=== PATIENT | female | born 1965 | race Two or more races ===

== ENCOUNTER 2025-02-09 09:13 | Inpatient (IN) | payer OTHER, MEDICAID ==
[~2025-02-09] VITALS: Ht 147.3 cm; Wt 67.2 kg
--- NOTE | 2025-02-09 09:38 | ED.PDOC ---
History of Present Illness HPI Comments 60-year-old female with a history of chronic back pain, diabetes, hypertension, and kidney stones, was brought in by daughter for the chief complaint of generalized weakness, with the associated dizziness, and disoriented. Daughter states the patient was acting abnormal from baseline, and upon checking at home blood pressure patient noted that it read low prompting the visit with the emergency department. Patient's EKG was noted to be 86 NSR, without any abnormalities, or acute findings. Patient denies any nausea, vomiting, diarrhea, abdominal pain, chest pain, shortness a breath, tachypnea, or any other associated symptoms, modifiers at this time. Chief Complaint: General Weakness Time Seen by MD: 09:34 Reviewed Notes: Nurses Notes, Medications, Allergies Allergies: Coded Allergies: Codeine (Verified Allergy, Unknown, 02/09/25) Information Source: Patient Mode of Arrival: Ambulatory Severity: Moderate Timing: Hours Duration: Since onset, Hours Prehospital treatment: None Past Medical History PAST MEDICAL HISTORY: DM, HTN, Kidney Stones Surgical History: Unknown Family History Family History: Reviewed,noncontributory to illness Social History Smoker: Non-Smoker Alcohol: Denies ETOH Use Drugs: Denies Drug Use Lives In: Home Constitutional: reports: fatigue, weakness; denies: chills, diaphoresis, fever, malaise, sweats, others EENTM: denies: blurred vision, double vision, ear bleeding, ear discharge, ear drainage, ear pain, ear ringing, eye pain, eye redness, hearing loss, mouth pain, mouth swelling, nasal discharge, nose bleeding, nose congestion, nose pain, photophobia, tearing, throat pain, throat swelling, voice changes, others Respiratory: denies: cough, hemoptysis, orthopnea, SOB at rest, shortness of breath, SOB with excertion, stridor, wheezing, others Cardiovascular: denies: chest pain, dizzy spells, diaphoresis, Dyspnea on exertion, edema, irregular heart beat, left arm pain, lightheadedness, palpitations, PND, syncope, others Gastrointestinal: denies: abdomen distended, abdominal pain, blood streaked bowels, constipated, diarrhea, dysphagia, difficulty swallowing, hematemesis, melena, nausea, poor appetite, poor fluid intake, rectal bleeding, rectal pain, vomiting, others Genitourinary: denies: abnormal vagina bleeding, burning, dyspareunia, dysuria, flank pain, frequency, hematuria, incontinence, pain, , vagina discharge, urgency, others Neurological: denies: dizziness, fainting, headache, left sided numbness, left sided weakness, numbness, paresthesia, pre-existing deficit, right sided numbness, right sided weakness, seizure, speech problems, tingling, tremors, weakness, others Musculoskeletal: denies: back pain, gout, joint pain, joint swelling, muscle pain, muscle stiffness, neck pain, others Integumetry: denies: bruises, change in color, change in hair/nails, dryness, laceration, lesions, lumps, rash, wounds, others Allergic/Immunocompromised: denies: Difficulty Healing, Frequent Infections, Hives, Itching, others Hematologic/Lymphatic: denies: anemia, blood clots, easy bleeding, easy bruising, swollen glands, others Endocrine: denies: excessive hunger, excessive sweating, excessive thirst, excessive urination, flushing, intolerance to cold, intolerance to heat, unexplained weight gain, unexplained weight loss, others Psychiatric: denies: anxiety, bipolar disorder, depression, hopeless, panic disorder, schizophrenia, sleepless, suicidal, others All Other Systems: Reviewed and Negative Physical Exam General Appearance: Moderate Distress, Normal HEENT: Normal ENT Inspection, Pharynx Normal, TMs Normal Neck: Full Range of Motion, Non-Tender, Normal, Normal Inspection Respiratory: Chest Non-Tender, Lungs Clear, No Accessory Muscle Use, No Respiratory Distress, Normal Breath Sounds Cardiovascular: No Edema, No JVD, No Murmur, No Gallop, Normal Peripheral Pulses, Regular Rate/Rhythm Breast Exam: Deferred Gastrointestinal: No Organomegaly, Non Tender, No Pulsatile Mass, Normal Bowel Sounds, Soft Genitalia: Deferred Pelvic: Deferred Rectal: Deferred Extremities: No calf tenderness, Normal capillary refill, Normal inspection, Normal range of motion, Non-tender, No pedal edema Musculoskeletal : Apperance: Normal Neurologic: Alert, 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 Was a procedure done?: No EKG EKG : Pulse Rate (adult): 86 [place]: Normal Cardiac Rhythm: NSR Block: None Hypertrophy: None ST: Normal Differential Dx Considerations may include: Hypoglycemia, vertigo, hypotension, X-Ray, Labs, Meds, VS Vital Signs Date Time Temp Pulse Resp B/P (MAP) Pulse Ox O2 Delivery O2 Flow Rate FiO2 02/09/25 09:38 86 02/09/25 09:24 86 02/09/25 09:15 97.9 84 18 113/67 96 97.9 Lab Test 02/09/25 10:08 02/09/25 09:25 Range/Units White Blood Count 7.1 4.4-10.8 10^3/uL Red Blood Count 4.70 4.0-5.20 10^6/uL Hemoglobin 11.7 L 12.2-16.2 g/dL Hematocrit 35.9 L 36.0-46.0 % Mean Corpuscular Volume 76.4 L 80.0-100.0 fL Mean Corpuscular Hemoglobin 24.8 L 28.0-32.0 pg Mean Corpuscular Hemoglobin Concent 32.5 32.0-36.0 g/dL Red Cell Distribution Width 16.1 H 11.8-14.3 % Platelet Count 291 140-450 10^3/uL Mean Platelet Volume 8.3 6.9-10.8 fL Neutrophils (%) (Auto) 49.8 37.0-80.0 % Lymphocytes (%) (Auto) 35.0 10.0-50.0 % Monocytes (%) (Auto) 10.4 0.0-12.0 % Eosinophils (%) (Auto) 4.1 0.0-7.0 % Basophils (%) (Auto) 0.7 0.0-2.0 % Neutrophils # (Auto) 3.5 1.6-8.6 10 ^3/uL Lymphocytes # (Auto) 2.5 0.4-5.4 10 ^3/uL Monocytes # (Auto) 0.7 0-1.3 10 ^3/uL Eosinophils # (Auto) 0.3 0-0.8 10 ^3/uL Basophils # (Auto) 0 0-0.2 10 ^3/uL Nucleated Red Blood Cells 0.1 % Sodium Level 141 136-145 mmol/L Potassium Level 3.6 3.5-5.1 mmol/L Chloride Level 102 98-107 mmol/L Carbon Dioxide Level 29 20-31 mmol/L Anion Gap 10 5-15 Blood Urea Nitrogen 8 L 9-23 mg/dL Creatinine 0.82 0.550-1.02 mg/dL Glomerular Filtration Rate Calc 82 >90 mL/min BUN/Creatinine Ratio 9.8 L 10.0-20.0 Serum Glucose 124 H 74-106 mg/dL Calcium Level 9.6 8.7-10.4 mg/dL Troponin I High Sensitivity < 3 L </=34 ng/L POC Glucose 170 H 70-106 mg/dl Patient alert. Blood sugar elevated. Complaining of dizziness. Vitals stable. Possible autonomic disorder. Establish intravenous access. Was given fluids. Explained to the family. Continue monitoring. PATIENT: LEXI LAWS ACCT: [id number] UNIT: [id number] : 1965 LOC: ER ROOM / BED: / AGE / SEX: 60 / F ADM STATUS: REG ER SERVICE 1007 ORDERING PHYSICIAN: CHANELLE GELLER MD PROCEDURE(s): HWOCT - HEAD WITHOUT CONTRAST REASON: tia ORDER NUMBER(s): [id number], ACCESSION NUMBER(s): [id number] EXAM: CT HEAD WITHOUT CONTRAST HISTORY: tia, hypertension, dizziness COMPARISON: None TECHNIQUE: Noncontrast axial CT images of the head were performed. Sagittal and coronal reformatted images were obtained. This CT exam was performed using 1 or more of the following dose reduction techniques: Automated exposure control, adjustment of the mA and/or kv according to patient size, or the use of iterative reconstruction techniques. Radiation Dose: CTDI volume is 52.71 mGy. Dose-length product is 863.9 mGy*cm FINDINGS: No intracranial hemorrhage, mass, midline shift, hydrocephalus, or evidence of acute large vessel infarct. There is a small cavum septum pellucidum. The partially-visualized paranasal sinuses are clear. The bilateral mastoid air cells and middle ear spaces are clear. No cranial fracture or scalp edema. IMPRESSION: No acute intracranial process. Time of 1ST Reevaluation: 10:04 Reevaluation 1ST: Unchanged Patient Education/Counseling: Diagnosis, Treatment, Need For Follow Up Family Education/Counseling: No Family Present SEPSIS Sepsis Screen Date sepsis recognized/suspect: Feb 09, 2025 Time Sepsis recognized/suspect: 917 Recent Procedure: No On Antibiotic Therapy: No Respiratory Rate >20: No Heart Rate >90: No Temp<36 C (96.8 F) or >38.3 C: No SBP <90 or MAP <65 mmHG: No New Acute Mental Status Change: No Is the patient on CPAP, BIPAP,: No Physician Orders Electrocardigram (02/09/25 09:32) Urinalysis (02/09/25 10:00) Head Without Contrast (02/09/25 10:07) Vital Signs Date Time Temp Pulse Resp B/P (MAP) Pulse Ox O2 Delivery O2 Flow Rate FiO2 02/09/25 09:38 86 02/09/25 09:24 86 02/09/25 09:15 97.9 84 18 113/67 96 97.9 Laboratory Tests Test 02/09/25 10:08 White Blood Count 7.1 10^3/uL (4.4-10.8) Departure 1 Departure Time of Disposition: 10:06 Impression: Primary Impression: Uncontrolled diabetes mellitus Qualified Codes: E13.65 - Other specified diabetes mellitus with hyperglycemia Additional Impression: Autonomic disorder Disposition: ADMITTED INPATIENT Admit to: Med Surg Condition: Guarded Critical Care Note Critical Care Time?: No Stability Stability form required: No Heart Score Heart Score: Heart Score Response (Comments) Value History Slightly Suspicious 0 EKG Normal 0 Age 45-64 1 Risk Factors >3 or Hx ASHD 2 Troponin Normal limit 0 Total 3 I personally scribed for CHANELLE GELLER MD ([email or web address]) on 02/09/25 at 09:38. Electronically submitted by Naresh Finch ([email or web address]). I personally scribed for CHANELLE GELLER MD ([email or web address]) on 02/09/25 at 11:46. Electronically submitted by Naresh Finch ([email or web address]). CHANELLE GELLER MD Feb 09, 2025 09:38
[2025-02-09 10:42] LABS: Hematocrit 35.9 % (36.0-46.0); Hemoglobin 11.7 g/dL (12.2-16.2); Mean Corpuscular Hemoglobin 24.8 pg (28.0-32.0); Mean Corpuscular Volume 76.4 fL (80.0-100.0); Nucleated Red Blood Cells % 0.1 %
[2025-02-09 10:47] LABS: Chloride 102 mmol/L (98-107); Potassium 3.6 mmol/L (3.5-5.1); Sodium 141 mmol/L (136-145)
[2025-02-09 10:48] LABS: Anion Gap 10 (5-15); Calcium 9.6 mg/dL (8.7-10.4); Carbon Dioxide 29 mmol/L (20-31)
[2025-02-09 10:53] LABS: BUN/Creatinine Ratio 9.8 (10.0-20.0)
[2025-02-09 11:03] LABS: Blood Urea Nitrogen 8 mg/dL (9-23); Glucose 124 mg/dL (74-106)
--- NOTE | 2025-02-09 11:03 | DVH ---
EXAM: CT HEAD WITHOUT CONTRAST HISTORY: tia, hypertension, dizziness COMPARISON: None TECHNIQUE: Noncontrast axial CT images of the head were performed. Sagittal and coronal reformatted i mages were obtained. This CT exam was performed using 1 or more of the following dose reduction techn iques: Automated exposure control, adjustment of the mA and/or kv according to patient size, or the u se of iterative reconstruction techniques. Radiation Dose: CTDI volume is 52.71 mGy. Dose-length product is 863.9 mGy*cm FINDINGS: No intracranial hemorrhage, mass, midline shift, hydrocephalus, or evidence of acute large vessel inf arct. There is a small cavum septum pellucidum. The partially-visualized paranasal sinuses are clear. The bilateral mastoid air cells and middle ear spaces are clear. No cranial fracture or scalp edema. IMPRESSION: No acute intracranial process.
[2025-02-09] MEDS ORDERED: MECL-126 PO (13:14)
[2025-02-09] MEDS ORDERED: FAMO-12 PO (13:14)
[2025-02-09] MEDS ORDERED: TIZA1TAB20 PO (13:14)
[2025-02-09] MEDS ORDERED: CLON0.5T4 PO (13:14)
[2025-02-09] MEDS ORDERED: FERR1TAB8 PO (13:14)
[2025-02-09] MEDS ORDERED: HYDR12.55 PO (13:14)
[2025-02-09] MEDS ORDERED: FLUO-470 PO (13:14)
[2025-02-09] MEDS ORDERED: AMLO1TAB22 PO (13:14)
[2025-02-09] MEDS ORDERED: ASPI-325 PO (13:14)
[2025-02-09] MEDS ORDERED: ONDANSETRON HCL 4 MG/2 ML VIAL IV PRN (13:15)
[2025-02-09] MEDS ORDERED: ACETAMINOPHEN 325 MG TAB PO PRN (13:15)
[2025-02-09] MEDS ORDERED: DEXTROSE (50%) 50ML SYRG IV PRN (13:30)
--- NOTE | 2025-02-09 13:37 | DVHHP2 ---
History of Present Illness Reason for Visit: Weakness and dizziness History of Present Illness Luzma Joyner is a 60-year-old female with past medical history of diabetes, hypertension, nephrolithiasis status post nephrolithotomy, chronic back pain, sciatica who presents to the ED with generalized weakness and dizziness that started this morning at 5:00 a.m.. Patient's daughter Tatiana also at the chair side states that her mom's blood pressure was low 98/85. She states that typically her blood pressure is around 103 systolic. Patient reports that she is compliant with her medications. Patient denies any recent trauma or injury, recent sick contacts, recent ingestion of spoiled food, recent travels, chest pain, shortness of breath, fever, chills, lightheadedness, urinary symptoms, abdominal pain, nausea, vomiting, or diarrhea. Cardiovascular: HTN Endocrine: Diabetes Past Medical History Nephrolithiasis status post nephrolithotomy Chronic back pain Sciatica Past Surgical History: Other (Nephrolithotomy) Family History: DM, Other (Mom with diabetes) Smoke: No ALCOHOL: none Drugs: None Lives: with Family Domestic Violence: Neg Review of Systems Constitutional: Yes: Weakness Neurological: Other (Dizziness) Allergies: Coded Allergies: Codeine (Verified Allergy, Unknown, 02/09/25) Medications Current Medications Medications Dose Ordered Sig/Jay Route Start Time Stop Time Status Last Admin Dose Admin Ondansetron HCl 4 mg Q4HP PRN IV 02/09/25 13:15 UNV Acetaminophen 650 mg Q6HP PRN PO 02/09/25 13:15 UNV Amlodipine Besylate 5 mg DAILY PO 02/10/25 10:00 UNV Aspirin 81 mg DAILY PO 02/10/25 10:00 UNV Clonazepam 0.5 mg QAM PO 02/10/25 07:00 UNV Famotidine 20 mg BID PO 02/09/25 22:00 UNV Fluoxetine HCl 20 mg DAILY PO 02/10/25 10:00 UNV Patient Own Medication 1 tab DAILY PO 02/10/25 10:00 UNV Patient Own Medication 1 tab DAILY PO 02/10/25 10:00 UNV Exam Vital Signs Vital Signs Date Time Temp Pulse Resp B/P (MAP) Pulse Ox O2 Delivery O2 Flow Rate FiO2 02/09/25 12:30 98.2 79 16 103/63 (76) 94 98.2 General Appearance: Alert, Oriented X3, Cooperative, No acute distress HEENT: Atraumatic, PERRLA, EOMI, Mucous membr. moist/pink Respiratory: Clear to auscultation, Normal air movement Cardiovascular: Regular rate, Normal S1, Normal S2 Abdominal: Normal bowel sounds, Soft Extremities: No clubbing, No cyanosis, No edema, Normal pulses, No tenderness/swelling Skin: No significant lesion Neuro: Normal speech, Strength at 5/5 X4 ext, Normal tone, Sensation intact Psych/Mental Status: Mental status NL, Mood NL Labs/Xrays Labs Test 02/09/25 10:08 02/09/25 09:25 Range/Units White Blood Count 7.1 4.4-10.8 10^3/uL Red Blood Count 4.70 4.0-5.20 10^6/uL Hemoglobin 11.7 L 12.2-16.2 g/dL Hematocrit 35.9 L 36.0-46.0 % Mean Corpuscular Volume 76.4 L 80.0-100.0 fL Mean Corpuscular Hemoglobin 24.8 L 28.0-32.0 pg Mean Corpuscular Hemoglobin Concent 32.5 32.0-36.0 g/dL Red Cell Distribution Width 16.1 H 11.8-14.3 % Platelet Count 291 140-450 10^3/uL Mean Platelet Volume 8.3 6.9-10.8 fL Neutrophils (%) (Auto) 49.8 37.0-80.0 % Lymphocytes (%) (Auto) 35.0 10.0-50.0 % Monocytes (%) (Auto) 10.4 0.0-12.0 % Eosinophils (%) (Auto) 4.1 0.0-7.0 % Basophils (%) (Auto) 0.7 0.0-2.0 % Neutrophils # (Auto) 3.5 1.6-8.6 10 ^3/uL Lymphocytes # (Auto) 2.5 0.4-5.4 10 ^3/uL Monocytes # (Auto) 0.7 0-1.3 10 ^3/uL Eosinophils # (Auto) 0.3 0-0.8 10 ^3/uL Basophils # (Auto) 0 0-0.2 10 ^3/uL Nucleated Red Blood Cells 0.1 % Sodium Level 141 136-145 mmol/L Potassium Level 3.6 3.5-5.1 mmol/L Chloride Level 102 98-107 mmol/L Carbon Dioxide Level 29 20-31 mmol/L Anion Gap 10 5-15 Blood Urea Nitrogen 8 L 9-23 mg/dL Creatinine 0.82 0.550-1.02 mg/dL Glomerular Filtration Rate Calc 82 >90 mL/min BUN/Creatinine Ratio 9.8 L 10.0-20.0 Serum Glucose 124 H 74-106 mg/dL Calcium Level 9.6 8.7-10.4 mg/dL Troponin I High Sensitivity < 3 L </=34 ng/L POC Glucose 170 H 70-106 mg/dl EXAM: CT HEAD WITHOUT CONTRAST HISTORY: tia, hypertension, dizziness COMPARISON: None TECHNIQUE: Noncontrast axial CT images of the head were performed. Sagittal and coronal reformatted images were obtained. This CT exam was performed using 1 or more of the following dose reduction techniques: Automated exposure control, adjustment of the mA and/or kv according to patient size, or the use of iterative reconstruction techniques. Radiation Dose: CTDI volume is 52.71 mGy. Dose-length product is 863.9 mGy*cm FINDINGS: No intracranial hemorrhage, mass, midline shift, hydrocephalus, or evidence of acute large vessel infarct. There is a small cavum septum pellucidum. The partially-visualized paranasal sinuses are clear. The bilateral mastoid air cells and middle ear spaces are clear. No cranial fracture or scalp edema. IMPRESSION: No acute intracranial process. SEPSIS Sepsis Screen Date sepsis recognized/suspect: Feb 09, 2025 Time Sepsis recognized/suspect: 917 Recent Procedure: No On Antibiotic Therapy: No Respiratory Rate >20: No Heart Rate >90: No Temp<36 C (96.8 F) or >38.3 C: No SBP <90 or MAP <65 mmHG: No New Acute Mental Status Change: No Is the patient on CPAP, BIPAP,: No Physician Orders Electrocardigram (02/09/25 09:32) Urinalysis (02/09/25 10:00) Head Without Contrast (02/09/25 10:07) Chest Xray 1 View (02/09/25 13:10) Admit (02/09/25 13:10) Allergies (02/09/25 13:10) Code Status (02/09/25 13:10) Ondansetron Hcl (Zofran) (02/09/25 13:15) Complete Blood Count (02/10/25 04:00) Comprehensive Metabolic Panel (02/10/25 04:00) Cardiac Diet-2gna,Lofat,Lochol (02/09/25 Lunch) Acetaminophen Tablet (Tylenol Tablet) (02/09/25 13:15) Amlodipine Tablet (Norvasc Tablet) (02/10/25 10:00) Aspirin Enteric Coated Tablet (Ecotrin E (02/10/25 10:00) Clonazepam Tablet (Klonopin Tablet) (02/10/25 07:00) Famotidine Tablet (Pepcid Tablet) (02/09/25 22:00) Fluoxetine Capsule (Prozac Capsule) (02/10/25 10:00) (Nf) Ferrous Sulfate (Gnp Iron) (02/10/25 10:00) (Nf) Hydrochlorothiazide (02/10/25 10:00) Glucose Blood (Accu-Chek Comfort Curve T (02/09/25 17:00) Mild Sliding Scale (02/09/25 17:00) Dextrose 50% Syringe (02/09/25 13:30) Hemoglobin A1c (02/09/25 13:16) Vital Signs Date Time Temp Pulse Resp B/P (MAP) Pulse Ox O2 Delivery O2 Flow Rate FiO2 02/09/25 12:30 98.2 79 16 103/63 (76) 94 98.2 02/09/25 09:38 86 02/09/25 09:24 86 02/09/25 09:15 97.9 84 18 113/67 96 97.9 Laboratory Tests Test 02/09/25 10:08 White Blood Count 7.1 10^3/uL (4.4-10.8) Assessment/Plan Assessment/Plan Assessment Autonomic imbalance Generalized weakness Obesity History of diabetes History of hypertension History of nephrolithiasis status post nephrolithotomy History of chronic back pain History of sciatica Plan Admit to med surge NS 1 L given in ED CT head noted Troponin noted EKG Hemoglobin A1c ISS and Accu-Cheks Chest x-ray ordered UA pending Diet Home medications reconciled DVT prophylaxis-not indicated patient ambulating PUD prophylaxis-H2 blockers Discussed plan of care with patient, patient's daughter, and nurse Educated patient on lifestyle modifications, diet, and exercise [id number] Preventive counseling healthy eating habits, physical activity, and regular checkups Plan discussed with: Patient, Daughter My Orders Orders - RICHARD CARMONA Procedure Category Date Status Time Chest Xray 1 View XY 02/09/25 Logged 13:10 Admit ADMIT 02/09/25 Transmitted 13:10 Allergies CHERISE 02/09/25 In Process 13:10 Code Status CODE 02/09/25 Transmitted 13:10 Ondansetron Hcl PHA 02/09/25 Logged (Zofran) 13:15 Complete Blood Count LAB 02/10/25 Verified 04:00 Comprehensive LAB 02/10/25 Verified Metabolic Panel 04:00 Cardiac DIET 02/09/25 Transmitted Diet-2gna,Lofat,Lochol Lunch Acetaminophen Tablet PHA 02/09/25 Logged (Tylenol Tablet) 13:15 Amlodipine Tablet PHA 02/10/25 Logged (Norvasc Tablet) 10:00 Aspirin Enteric PHA 02/10/25 Logged Coated Tablet 10:00 Clonazepam Tablet PHA 02/10/25 Logged (Klonopin Tablet) 07:00 Famotidine Tablet PHA 02/09/25 Logged (Pepcid Tablet) 22:00 Fluoxetine Capsule PHA 02/10/25 Logged (Prozac Capsule) 10:00 (Nf) Ferrous Sulfate PHA 02/10/25 Logged (Gnp Iron) 10:00 (NF) PHA 02/10/25 Logged Hydrochlorothiazide 10:00 Glucose Blood PHA 02/09/25 Transmitted (Accu-Chek Comfort 17:00 Mild Sliding Scale PHA 02/09/25 Transmitted 17:00 Dextrose 50% Syringe PHA 02/09/25 Transmitted 13:30 Hemoglobin A1c LAB 02/09/25 Transmitted 13:16 Date of Service: Feb 09, 2025 Billing Provider: RICHARD CARMONA Common Visit Codes: [id number] INP/OBS CARE (HIGH) Secondary Visit Codes: [id number] COUNSELING IND RICHARD CARMONA Feb 09, 2025 13:36
--- NOTE | 2025-02-09 13:54 | DVH ---
XY CHEST XRAY 1 VIEW, HISTORY: r/o pna COMPARISON: None None TECHNICAL DATA: 1 view of the chest was obtained. FINDINGS: Lines and tubes: None Cardiomediastinal silhouette: normal Pulmonary vasculature: normal Lung expansion: normal Lung airspace: normal Lung interstitium: normal Pleura: normal Pneumothorax: no Bones: Unremarkable Other: no IMPRESSION: No acute intrathoracic abnormality.
[2025-02-09 14:00] VITALS: PULSE 74; RESP 14; O2SAT 92
[2025-02-09] MEDS: SODIUM CHLORIDE 0.9% 1,000 ML IV ONE (14:17)
--- NOTE | 2025-02-09 16:33 | ECG ---
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
[2025-02-09] MEDS: ACCU-CHEK COMFORT CURVE STRIP VI SCH (17:00)
[2025-02-09] MEDS: InsuLIN REG 1unit/0.01ml Soln (100units/ml) SC SCH (17:00)
[2025-02-09 19:19] LABS: Urine Protein, UAD Negative (Negative)
[2025-02-09 21:44] VITALS: BP 121/73; PULSE 81; RESP 14; TEMP 98.1; O2SAT 94
[2025-02-09] MEDS ORDERED: FAMOTIDINE 20 MG TAB PO SCH (22:00)
[2025-02-10] MEDS ORDERED: clonazePAM 0.5 MG TAB PO SCH (07:00)
[2025-02-10] MEDS ORDERED: hydroCHLOROthiazide 25 MG TAB PO SCH (10:00)
[2025-02-10] MEDS ORDERED: FERROUS SULFATE 325mg EC TAB PO SCH (10:00)
[2025-02-10] MEDS ORDERED: ASPirin-EC 81 mg tab PO SCH (10:00)
== END 2025-02-09 22:12 | disposition left against medical advice (07) | DRG 74 ==
LOC: ER 09:13 → OVERFLOW 13:10
DX: G90.89 Other disorders of autonomic nervous system (principal); E11.65 Type 2 diabetes mellitus with hyperglycemia; I10 Essential (primary) hypertension; Z53.29 Procedure and treatment not carried out because of patient's decision for other reasons; G89.29 Other chronic pain; E66.9 Obesity, unspecified; Z87.442 Personal history of urinary calculi; Z88.5 Allergy status to narcotic agent; Z83.3 Family history of diabetes mellitus; Z68.31 Body mass index [BMI] 31.0-31.9, adult; Z79.899 Other long term (current) drug therapy
CPT/HCPCS: 36415; 70450; 71045; 80048; 81001; 82962; 83036; 84484; 85025; 93005; 96360; G0378